=== PATIENT | female | born 1955 | race Caucasian/White ===

== ENCOUNTER → 2022-09-06 | Day surgery (SDC) | payer MEDICARE, OTHER ==
[~2022-09-06] MED LIST: FLU VACC QS2022-23(65YR UP)/PF 240 MCG/0.7 ML SYRINGE IM ONE
[2022-09-06 10:41] LABS: Anion Gap 13 mmol/L (10-20); BUN (Urea Nitrogen) 14 mg/dL (9.8-20.1); Calc. Creatinine Clearance 0 mL/min (70-130); Calcium 9.8 mg/dL (7.8-10.44); Carbon Dioxide 26 mmol/L (23-31); Chloride 104 mmol/L (98-107); Estimated GFR 82; Glucose 106 mg/dL (80-115); Potassium 4.1 mmol/L (3.5-5.1); Sodium 139 mmol/L (136-145)
[2022-09-06 11:29] VITALS: BP 114/63; TEMP 98
== END ==
LOC: CSHSDC 09:33
PROVIDERS: ATTEND Specialist
PROC: 5A2204Z Restoration of Cardiac Rhythm, Single (ICD-10-PCS; principal; 2022-09-06)
DX: I48.0 Paroxysmal atrial fibrillation (principal); I35.1 Nonrheumatic aortic (valve) insufficiency; I48.4 Atypical atrial flutter; Z79.899 Other long term (current) drug therapy; Z79.4 Long term (current) use of insulin
CPT/HCPCS: 80048; 92960; 93005; 93010

== ENCOUNTER 2025-05-09 08:37 | Outpatient (CLI) | payer MEDICARE, OTHER | END 2025-05-09 08:38 | disposition home or self-care (01) | LOC: CSHSLEEP 08:37 | PROVIDERS: ATTEND Internal Medicine Critical Care Medicine | DX: G47.33 Obstructive sleep apnea (adult) (pediatric) (principal); R06.83 Snoring; G25.89 Other specified extrapyramidal and movement disorders | CPT/HCPCS: 95810 ==

== ENCOUNTER 2025-09-05 08:17 | Outpatient (CLI) | payer MEDICARE, OTHER | END 2025-09-05 08:18 | disposition home or self-care (01) | LOC: CSHMAMMO 08:17 | PROVIDERS: ATTEND Nurse Practitioner Family | DX: N63.0 Unspecified lump in unspecified breast (principal) | CPT/HCPCS: 77066; G0279 ==